=== PATIENT | male | born 1975 | race American Indian/Alaskan Native ===

== ENCOUNTER 2018-03-25 16:53 | Emergency (ER) | payer SELFPAY ==
[2018-03-25 17:28] LABS: Basophils % (Auto) 0.6 % (0.0-1.8); Eosinophils % (Auto) 1.4 % (0.0-4.3); Hematocrit 45.5 % (35.5-45.6); Hemoglobin 15.6 gm/dl (11.8-15.2); Lymphocytes # (Auto) 1.1 K/mm3 (1.2-5.4); Lymphocytes % (Auto) 33.7 % (13.4-35.0); Mean Corpuscular HGB Conc 34 % (32-34); Mean Corpuscular Hemoglobin 32 pg (28-32); Mean Corpuscular Volume 93 fl (84-94); Monocytes # (Auto) 0.4 K/mm3 (0.0-0.8); Monocytes % (Auto) 14.1 % (0.0-7.3); Platelet Count 157 K/mm3 (140-440); Red Blood Count 4.88 M/mm3 (3.65-5.03); Red Cell Distribution Width 12.9 % (13.2-15.2)
[2018-03-25 18:20] LABS: BUN/Creatinine Ratio 18; Blood Urea Nitrogen 18 mg/dL (9-20); Hemolysis Index 28
[2018-03-25] MEDS ORDERED: NACL 0.9% 1000 ML 2,000 ML IV ONE (19:13)
[2018-03-25] MEDS ORDERED: HumuLIN R IV ONE (19:13)
[2018-03-25] MEDS ORDERED: NACL 0.9% 1000 ML 2,000 ML ONE (19:17)
[2018-03-25] MEDS ORDERED: NACL 0.9% 1000 ML 1,000 ML ONE (19:18)
--- NOTE | 2018-03-25 19:18 | Emergency Department Report ---
- General Chief complaint: Arrhythmia/Palpitations Stated complaint: WEAK/DEHYDRATED Time Seen by Provider: 03/25/18 19:07 Source: patient Mode of arrival: Ambulatory Limitations: No Limitations - History of Present Illness Initial comments: Mr. Jauregui is 42 yo male who was diagnosed with diabetes at outside hospital last year. He was not prescribed medication. He attempted to control diabetes with healthy diet. However, he does continue to drink sweetened beverages such as soda and fruit juices. For 2 weeks, he feels dehydrated with dry skin and sore scratchy throat. His heart races when he stands up. [place] a [place] He has severe heat exposure with 500 degree oven. Denies pain. He drove to the ER in his personal vehicle. He has lived in the for 10 years. He is from [facility]. He is . lives in [facility]. Denies tobacco or alcohol use. MD Complaint: generalized weakness -: Gradual, week(s) (2) Location: generalized Severity: moderate Consistency: constant Improves with: none Worsens with: none - Related Data Previous Rx's Medication Instructions Recorded Last Taken Type metFORMIN [Glucophage] 500 mg PO BID 90 Days #180 tablet 03/25/18 Unknown Rx Allergies Allergy/AdvReac Type Severity Reaction Status Date / Time No Known Allergies Allergy Unverified 03/25/18 16:56 ED Review of Systems ROS: Stated complaint: WEAK/DEHYDRATED Other details as noted in HPI Comment: All other systems reviewed and negative Constitutional: malaise. denies: fever Respiratory: denies: cough Cardiovascular: palpitations. denies: chest pain Endocrine: increased thirst, increased urine Gastrointestinal: denies: abdominal pain, nausea, vomiting Genitourinary: frequency ED Past Medical Hx - Past Medical History Previous Medical History?: Yes Hx Diabetes: Yes (yes diagnosed at hospital last year) - Surgical History Past Surgical History?: No - Social History Smoking Status: Never Smoker Substance Use Type: None - Medications Home Medications: Home Medications Medication Instructions Recorded Confirmed Last Taken Type metFORMIN [Glucophage] 500 mg PO BID 90 Days #180 tablet 03/25/18 Unknown Rx ED Physical Exam - General Limitations: No Limitations General appearance: alert, in no apparent distress - Head Head exam: Present: atraumatic, normocephalic - Eye Eye exam: Present: normal appearance - ENT ENT exam: Present: mucous membranes dry, other (no lesions) - Neck Neck exam: Present: normal inspection. Absent: tenderness, meningismus - Respiratory Respiratory exam: Present: normal lung sounds bilaterally. Absent: respiratory distress, wheezes, rales, rhonchi - Cardiovascular Cardiovascular Exam: Present: regular rate, normal rhythm, normal heart sounds. Absent: bradycardia, tachycardia, systolic murmur, diastolic murmur, rubs, gallop - GI/Abdominal GI/Abdominal exam: Present: soft, normal bowel sounds. Absent: distended, tenderness, guarding, rebound - Rectal Rectal exam: Present: deferred - Extremities Exam Extremities exam: Present: normal inspection - Back Exam Back exam: Present: normal inspection - Neurological Exam Neurological exam: Present: alert, oriented X3 - Psychiatric Psychiatric exam: Present: normal affect, normal mood - Skin Skin exam: Present: warm, dry, intact, normal color. Absent: rash ED Course Vital Signs 03/25/18 03/25/18 03/25/18 16:57 18:43 18:46 Temperature 98.5 F Pulse Rate 115 H 90 91 H Respiratory 16 15 18 Rate Blood Pressure 124/89 120/90 O2 Sat by Pulse 99 98 Oximetry 03/25/18 03/25/18 19:00 19:15 Temperature Pulse Rate 82 82 Respiratory 16 16 Rate Blood Pressure 114/89 116/88 O2 Sat by Pulse 96 Oximetry ED Medical Decision Making - Lab Data Result diagrams: 03/25/18 17:14 03/25/18 17:14 Laboratory Results - last 24 hr 03/25/18 03/25/18 03/25/18 17:14 17:14 20:29 WBC 3.2 L RBC 4.88 Hgb 15.6 H Hct 45.5 MCV 93 MCH 32 MCHC 34 RDW 12.9 L Plt Count 157 Lymph % (Auto) 33.7 [place] % (Auto) 14.1 H Eos % (Auto) 1.4 Baso % (Auto) 0.6 Lymph # 1.1 L [place] # 0.4 Eos # 0.0 Baso # 0.0 Seg Neutrophils % 50.2 Seg Neutrophils # 1.6 L Sodium 127 L Potassium 4.6 Chloride 90.3 L Carbon Dioxide 26 Anion Gap 15 BUN 18 Creatinine 1.0 Estimated GFR > 60 BUN/Creatinine Ratio 18 Glucose 710 H* POC Glucose 266 H Calcium 9.0 Troponin T < 0.010 - Medical Decision Making Mr. Nano presents with hyperglycemia and pseudohyponatremia due to poorly controlled diabetes. Also has dehydration/hypovolemia. Normal bicarbonate. Normal and intact. Normal kidney function. Repeat BG 266 after IVF and small dose IV regular Rx: metformin referred to [facility] patiet was given verbal and written diabetes education Critical care attestation.: If time is entered above; I have spent that time in minutes in the direct care of this critically ill patient, excluding procedure time. ED Disposition Clinical Impression: Diabetes mellitus, Hyperglycemia due to type 2 diabetes mellitus, Dehydration, mild Disposition: DC-01 TO HOME OR SELFCARE Is pt being admited?: No Does the pt Need Aspirin: No Condition: Stable Instructions: Diabetes Mellitus Type 2 in Adults (ED) Prescriptions: metFORMIN [Glucophage] 500 mg PO BID 90 Days #180 tablet Referrals: [facility] [Outside] - 3-5 Days Forms: Work/School Release Form(ED) Time of Disposition: 20:47
[2018-03-25 21:00] VITALS: BP 116/92
== END 2018-03-25 21:00 | disposition home or self-care (01) ==
LOC: EDSEX → ED 16:53
DX: E86.0 Dehydration (principal); E11.65 Type 2 diabetes mellitus with hyperglycemia
CPT/HCPCS: 36415; 80048; 82962; 84484; 85025; 93005; 93010; 96361; 96374; 99284; J7030; J1815